=== PATIENT | female | born 1960 | race Caucasian/White ===

== ENCOUNTER 2018-06-30 03:11 | Emergency (ER) | payer OTHER ==
[~2018-06-30] VITALS: Ht 180.3 cm; Wt 63.5 kg
[2018-06-30 03:19] VITALS: Ht 180.3 cm; Wt 63.5 kg
[2018-06-30 04:05] LABS: BASOPHIL % 0.2 % (0-2); PLATELET COUNT 223 x10^3mcL (130-400); RED CELL DISTRIBUTION WIDTH 13.9 % (11.5-14.5)
[2018-06-30 04:06] LABS: microscopic required? YES; urine erythrocyte TRACE (NEGATIVE)
[2018-06-30 04:39] LABS: CALCIUM 8.9 mg/dL (8.5-10.1); CARBON DIOXIDE 27.3 mmol/L (21-32); CHLORIDE SERUM 100 mmol/L (98-107); GFR1 > 60 mL/min; GLUCOSE SERUM 138 mg/dL (74-106); POTASSIUM SERUM 3.1 mmol/L (3.5-5.1); SODIUM SERUM 135 mmol/L (136-145)
[2018-06-30 04:40] LABS: ALBUMIN 4.1 g/dL (3.4-5.0); ALKALINE PHOSPHATASE 73 U/L (46-116); ALT/SGPT 44 U/L (14-59); AST/SGOT 43 U/L (15-37); BILIRUBIN TOTAL 0.8 mg/dL (0.20-1.00); TOTAL PROTEIN, SERUM 7.5 g/dL (6.4-8.2)
[2018-06-30 04:50] LABS: AMPHETAMINE QUAL UR NONE DETECTED (See below)
[2018-06-30 19:46] VITALS: BP 106/56
== END 2018-06-30 19:46 ==
LOC: ED 03:11
PROVIDERS: Emergency Medicine
DX: R45.1 Restlessness and agitation (principal); R45.851 Suicidal ideations; F17.210 Nicotine dependence, cigarettes, uncomplicated; F12.90 Cannabis use, unspecified, uncomplicated; Z98.890 Other specified postprocedural states
CPT/HCPCS: 36415; G0480; J3486